=== PATIENT | male | born 1985 | race Caucasian/White ===

== ENCOUNTER 2022-03-11 13:41 | Emergency (ER) | payer SELFPAY ==
[2022-03-11] MEDS ORDERED: Lidocaine 1% 5 ML VIAL INJECT ONE (16:00)
[2022-03-11] MEDS ORDERED: Lidocaine 1% 5 ML VIAL ONE (16:58)
[2022-03-11 17:25] LABS: CARBON DIOXIDE,CO2 31.9 mmol/L (21.0-32.0); POTASSIUM,K 2.5 mmol/L (3.5-5.1)
[2022-03-11] MEDS ORDERED: Potassium Chloride 20 MEQ Tab.ER PO ONE (17:47)
[2022-03-11 18:04] LABS: CARBON DIOXIDE,CO2 32.5 mmol/L (21.0-32.0); POTASSIUM,K 2.7 mmol/L (3.5-5.1)
[2022-03-11] MEDS ORDERED: Ondansetron 4 MG/2 ML SDV IVPUSH ONE (18:26)
[2022-03-11] MEDS ORDERED: Morphine 4 MG/ML VIAL IVPUSH ONE ×2 (18:26→22:53)
[2022-03-12] MEDS ORDERED: HYDROmorphone 1 MG/ML Syringe IVPUSH ONE ×3 (00:49→09:37)
== END 2022-03-12 09:58 ==
LOC: MW.ED 13:41
DX: N48.39 Other priapism (principal); U07.1 COVID-19
CPT/HCPCS: 36415; 80048; 80053; 80305; 81003; 85025; 85610; 87635; 93005; 96374; 96375; 96376; 99285; A9270; J1170; J2270; J2405; 99284; U0002

== ENCOUNTER 2022-10-07 16:04 | Observation (INO) | payer SELFPAY ==
[2022-10-07] MEDS ORDERED: Sodium Chloride 0.9% 1,000 ML IV STA (18:28)
[2022-10-07] MEDS ORDERED: VANCOmycin 2 GM/400 ML 400 ML IV ONE (19:00)
[2022-10-07 19:27] LABS: POTASSIUM,K 3.5 mmol/L (3.5-5.1)
[2022-10-07 19:38] LABS: CORONAVIRUS COVID-19 NAA NEGATIVE (NEGATIVE); INFLUENZA A NAA NEGATIVE (NEGATIVE); INFLUENZA B NAA NEGATIVE (NEGATIVE)
[2022-10-07] MEDS ORDERED: cefTRIAXone 1 GM in Sodium Chloride 0.9% 50 ML IV STA (20:27)
[2022-10-07] MEDS ORDERED: Morphine 4 MG/ML Syringe IVPUSH STA (21:09)
[2022-10-07] MEDS: Sodium Chloride 0.9% 1,000 ML IV SCH (23:34)
[2022-10-08] MEDS: Morphine 2 MG/ML SYRINGE IVPUSH PRN ×5 (00:33→21:48)
[2022-10-08 06:48] LABS: CARBON DIOXIDE,CO2 26.5 mmol/L (21.0-32.0); POTASSIUM,K 3.7 mmol/L (3.5-5.1)
[2022-10-08] MEDS: Sodium Chloride 0.9% 1,000 ML IV SCH (08:00)
[2022-10-08] MEDS ORDERED: Polyethylene Glycol 3350 Powder 17 GM Packet PO PRN (08:33)
[2022-10-08] MEDS ORDERED: Acetaminophen 325 MG Tab PO PRN (08:33)
[2022-10-08] MEDS ORDERED: Albuterol/Ipratropium 3.0-0.5 MG/3 ML Neb Soln NEB PRN (08:33)
[2022-10-08] MEDS ORDERED: Ondansetron 4 MG/2 ML SDV IVPUSH PRN (08:33)
[2022-10-08] MEDS: VANCOmycin 1.5 GM/300 ML 1.5 GM in Premix Bag 1 BAG IV SCH ×2 (09:02→20:39)
[2022-10-08] MEDS ORDERED: Ibuprofen 600 MG Tab PO PRN (09:29)
[2022-10-08] MEDS ORDERED: Diphtheria,Pertussis(Acell),Tetanus Vaccine 0.5 ML Syringe IM ONE (09:38)
[2022-10-08] MEDS ORDERED: cefTRIAXone 1 GM in Sodium Chloride 0.9% 50 ML IV SCH (09:45)
[2022-10-08] MEDS: oxyCODONE 5 MG Tab PO PRN ×2 (12:48→22:31)
[2022-10-08] MEDS: QUEtiapine 100 MG Tab PO SCH (21:43)
[2022-10-08] MEDS: traZODone 50 MG Tab PO SCH (21:43)
[2022-10-08] MEDS: cefTRIAXone 1 GM in Sodium Chloride 0.9% 50 ML IV SCH (22:32)
[2022-10-09] MEDS: Sodium Chloride 0.9% 1,000 ML IV SCH ×2 (04:29→14:09)
[2022-10-09 07:09] LABS: CARBON DIOXIDE,CO2 27.8 mmol/L (21.0-32.0); POTASSIUM,K 3.8 mmol/L (3.5-5.1)
[2022-10-09] MEDS: VANCOmycin 1.5 GM/300 ML 1.5 GM in Premix Bag 1 BAG IV SCH (08:51)
[2022-10-09] MEDS: oxyCODONE 5 MG Tab PO PRN ×3 (08:52→21:01)
[2022-10-09] MEDS: VANCOmycin 1.25 GM/250 ML 1.25 GM in Premix Bag 1 BAG IV SCH ×2 (15:59→23:21)
[2022-10-09] MEDS: QUEtiapine 100 MG Tab PO SCH (21:01)
[2022-10-09] MEDS: traZODone 50 MG Tab PO SCH (21:01)
[2022-10-09] MEDS: cefTRIAXone 1 GM in Sodium Chloride 0.9% 50 ML IV SCH (21:02)
[2022-10-10 06:34] LABS: CARBON DIOXIDE,CO2 28.6 mmol/L (21.0-32.0)
[2022-10-10] MEDS: oxyCODONE 5 MG Tab PO PRN (08:14)
[2022-10-10] MEDS: VANCOmycin 1.25 GM/250 ML 1.25 GM in Premix Bag 1 BAG IV SCH (08:15)
== END 2022-10-10 11:47 | disposition home or self-care (01) ==
LOC: MW.ED 16:04 → UNDOADMOB 21:07 → MW.MS 21:07
PROVIDERS: ADMIT Internal Medicine; ATTEND Internal Medicine
DX: L03.113 Cellulitis of right upper limb (principal); K08.9 Disorder of teeth and supporting structures, unspecified; F32.A Depression, unspecified; F41.9 Anxiety disorder, unspecified; G47.00 Insomnia, unspecified; F17.210 Nicotine dependence, cigarettes, uncomplicated; Z59.00 Homelessness unspecified; Z79.899 Other long term (current) drug therapy; Z98.890 Other specified postprocedural states; Z90.49 Acquired absence of other specified parts of digestive tract; Z20.822 Contact with and (suspected) exposure to COVID-19
CPT/HCPCS: 0240U; 36415; 73110; 80053; 80202; 83605; 85025; 87040; 87070; 87205; 90471; 90715; 93005; A9270; J0696; J2270; J3370; J7030; J7050; 93010; 99284

== ENCOUNTER 2023-04-24 13:38 | Emergency (ER) | payer SELFPAY ==
[2023-04-24] MEDS ORDERED: Ketorolac 60 MG/2 ML SDV IM ONE (15:28)
== END 2023-04-24 18:20 | disposition home or self-care (01) ==
LOC: MW.ED 13:38
DX: M25.511 Pain in right shoulder (principal)
CPT/HCPCS: 73030; 96372; 99283; J1885

== ENCOUNTER 2023-06-07 04:24 | Emergency (ER) | payer MEDICAID ==
[2023-06-07 05:59] LABS: BASOPHILS PERCENT AUTO 0.5 % (0.0-1.5); EOSINOPHILS ABSOLUTE AUTO 0.2 K/uL (0.0-0.7); EOSINOPHILS PERCENT AUTO 2.7 % (0.0-7.0); HEMATOCRIT 39.5 % (38.0-50.0); HEMOGLOBIN 14.1 g/dL (13.0-17.0); LYMPHOCYTES ABSOLUTE AUTO 1.8 K/uL (0.6-2.4); LYMPHOCYTES PERCENT AUTO 20.7 % (16.0-40.0); MEAN CORPUSCULAR HEMOGLOBIN 29.7 pg (27.0-32.0); MEAN CORPUSCULAR HGB CONC 35.7 g/dL (31.0-37.0); MEAN CORPUSCULAR VOLUME 83.3 fL (80.0-98.0); MONOCYTES ABSOLUTE AUTO 0.4 K/uL (0.0-0.8); MONOCYTES PERCENT AUTO 4.5 % (0.0-15.0); NEUTROPHILS ABSOLUTE AUTO 6.2 K/uL (1.4-5.7); NEUTROPHILS PERCENT AUTO 71.6 % (48.0-80.0); NRBC ABSOLUTE 0 K/uL; PLATELET COUNT,PLT 323 K/uL (150-400); RED BLOOD CELL COUNT 4.74 M/uL (4.50-5.90); WHITE BLOOD CELL COUNT,WBC 8.63 K/uL (4.0-11.0)
[2023-06-07 06:15] LABS: ALBUMIN 3.5 g/dL (3.4-5.0); BILIRUBIN TOTAL 0.4 mg/dL (0.2-1.0); CALCIUM 8.8 mg/dL (8.5-10.1); CARBON DIOXIDE,CO2 28.1 mmol/L (21.0-32.0); CREATININE 1.1 mg/dL (0.8-1.3); EST CRCL DRUG DOSING (CG) 97.93 mL/min; POTASSIUM,K 2.9 mmol/L (3.5-5.1); PROTEIN TOTAL,TP 7.1 g/dL (6.4-8.2)
[2023-06-07] MEDS ORDERED: Potassium Chloride 20 MEQ Tab.ER PO ONE (06:20)
== END 2023-06-07 06:24 | disposition home or self-care (01) ==
LOC: MW.ED 04:24
DX: K02.9 Dental caries, unspecified (principal); Z20.822 Contact with and (suspected) exposure to COVID-19
CPT/HCPCS: 36415; 71045; 80053; 84484; 85025; 87635; 93005; 99285; A9270; 93010; 99282; U0002

== ENCOUNTER 2023-06-22 01:14 | Emergency (ER) | payer MEDICAID ==
[2023-06-22] MEDS ORDERED: LORazepam 0.5 MG Tab PO ONE (01:16)
[2023-06-22] MEDS ORDERED: Lidocaine/Epineph/Tetracaine 3 ML Syringe TOP ONE (01:17)
[2023-06-22] MEDS ORDERED: Acetaminophen 325 MG Tab PO ONE (01:33)
[2023-06-22] MEDS ORDERED: Ibuprofen 400 MG Tab PO ONE (02:05)
[2023-06-22] MEDS ORDERED: oxyCODONE 5 MG Tab PO ONE ×2 (02:05→03:03)
[2023-06-22] MEDS ORDERED: Bacitracin Oint 28.35 GM Tube ONE (03:10)
[2023-06-22] MEDS ORDERED: Bacitracin Oint 28.35 GM Tube TOP SCH (06:00)
== END 2023-06-22 03:20 | disposition home or self-care (01) ==
LOC: MW.ED 01:14 → EDBD 01:14 → MERGE 01:14 → MW.ED 03:20
DX: S00.83XA Contusion of other part of head, initial encounter (principal); Y04.0XXA Assault by unarmed brawl or fight, initial encounter
CPT/HCPCS: 70450; 70486; 72125; 99284; A9270; 99283